=== PATIENT | male | born 1945 | race Caucasian/White ===

== ENCOUNTER 2017-08-31 03:27 | Inpatient (IN) | payer MEDICARE, OTHER ==
[2017-08-31] MEDS: SOD CHLORIDE 0.9% IV (03:51)
[2017-08-31] MEDS: MEROPENEM 500MG/50 ML (PMX) 50 ML IVPB (03:53)
[2017-08-31 04:04] LABS: ADD MAN DIFF? NO
[2017-08-31 04:08] LABS: ABNORMAL IP MESSAGE 1; BASOPHILS % 0.3 % (0.0-2.0); HEMATOCRIT 21.4 % (42.0-52.0); LYMPHOCYTES # 0.6 10^3/ul (0.8-2.9); LYMPHOCYTES % 3.9 % (15.0-51.0); MEAN CORPUSCULAR HEMOGLOBIN 31.9 pg (29.0-33.0); MEAN CORPUSCULAR HGB CONC 31.3 g/dl (32.0-37.0); MEAN CORPUSCULAR VOLUME 101.9 fl (82.0-101.0); MEAN PLATELET VOLUME 13.6 fl (7.4-10.4); MONOCYTE # 1.5 10^3/ul (0.3-0.9); MONOCYTES % 9.9 % (0.0-11.0); PLATELET COUNT 212 10^3/UL (140-415); POSITIVE DIFF @See below; RED CELL DISTRIBUTION WIDTH 18.3 % (11.5-14.5)
[2017-08-31 04:08] LABS: WHITE BLOOD COUNT 15.3 10^3/ul (4.8-10.8)
[2017-08-31 04:20] LABS: HEMOGLOBIN 6.7 g/dl (14.0-18.0)
[2017-08-31 04:24] LABS: ALANINE AMINOTRANSFERASE 99 IU/L (13-69); ALBUMIN 2.1 g/dl (3.3-4.9); ALBUMIN/GLOBULIN RATIO 0.72; ALKALINE PHOSPHATASE 64 IU/L (42-121); ANION GAP 19 (8-16); ASPARTATE AMINO TRANSFERASE 63 IU/L (15-46); BLOOD UREA NITROGEN 36 mg/dl (7-20); CALCIUM 6.2 mg/dl (8.4-10.2); CARBON DIOXIDE 23 mmol/L (21-31); CHLORIDE 118 mmol/L (97-110); CREATININE 1.03 mg/dl (0.61-1.24); GLUCOSE 117 mg/dl (70-220); POTASSIUM 3.7 mmol/L (3.5-5.1); PROTIME 16.4 Sec (11.9-14.9); PT RATIO 1.3; SODIUM 156 mmol/L (135-144)
[2017-08-31 04:25] LABS: PARTIAL THROMBOPLASTIN TIME 33.7 Sec (25.0-35.0)
[2017-08-31 04:44] LABS: TROPONIN-I < 0.012 ng/ml (0.00-0.12)
[2017-08-31] MEDS ORDERED: PROPOFOL 100 ML (04:45)
[2017-08-31 04:46] LABS: LACTIC ACID 2.7 mmol/L (0.5-2.0)
[2017-08-31] MEDS: VANCOMYCIN 1 GM (PMX) 250 ML IVPB (04:58)
[2017-08-31 05:08] LABS: ADD UMIC YES; UR ASCORBIC ACID 40 mg/dL (NEGATIVE); UR BILIRUBIN (Dip) NEGATIVE (NEGATIVE); UR BLOOD (Dip) NEGATIVE (NEGATIVE); UR CLARITY SLIGHTLY CLOUDY (CLEAR); UR COLOR YELLOW (YELLOW); UR GLUCOSE (Dip) NEGATIVE (NEGATIVE); UR KETONES (Dip) NEGATIVE (NEGATIVE); UR LEUKOCYTE ESTERASE (Dip) NEGATIVE Leu/ul (NEGATIVE); UR NITRITE (Dip) NEGATIVE (NEGATIVE); UR RBC 0 /HPF (0-5); UR SPECIFIC GRAVITY (Dip) 1.023 (1.003-1.030); UR TOTAL PROTEIN (Dip) 1+ mg/dl (NEGATIVE); UR UROBILINOGEN (Dip) 1+ mg/dL (NEGATIVE); UR WBC 3 /HPF (0-5)
[2017-08-31 05:09] LABS: URINE BLOOD (Dip) POC Negative (NEGATIVE); URINE GLUCOSE (Dip) POC Negative (NEGATIVE); URINE KETONES (Dip) POC Negative (NEGATIVE); URINE LEUKOCYTE EST (Dip) POC Negative (NEGATIVE); URINE NITRITE (Dip) POC Negative (NEGATIVE); URINE TOTAL PROTEIN POC 1+ (NEGATIVE)
[2017-08-31 05:19] LABS: AADO2 Arterial 442.1 mmHg (7.0-24.0); Allen Test ACCEPTAB; Arterial Base Excess 2.4 mmol/L (-3.0-3); Arterial COHb 0.3 % (0.0-3.0); Arterial Fraction of Oxyhgb 98.3 % (93.0-99.0); Arterial MetHb 0.4 % (0.0-1.5); Arterial Total Hemglobin 9.8 g/dl (12.0-18.0); Arterial pCO2 48.5 mmhg (35-45); Blood Gas Low PEEP Setting 0 cmH2O; MODE VENT - AC; Site Left Radial
[2017-08-31] MEDS: ACETAMINOPHEN 650 MG SUPP PR (05:19)
[2017-08-31] MEDS ORDERED: NORepinephrine 8MG/250 ML (PMX 250 ML (05:25)
[2017-08-31] MEDS ORDERED: MIDAZOLAM IV (05:27)
[2017-08-31] MEDS: LEVALBUTEROL (NEB) 1.25 MG/0.5 ML AMP HHN (05:32)
[2017-08-31] MEDS: IPRATROPIUM (NEB) 0.5 MG/2.5 ML AMP HHN (05:32)
[2017-08-31] MEDS ORDERED: SOD CHLORIDE 0.9% 1,000 ML IV (05:33)
[2017-08-31] MEDS: NORepinephrine 8MG/250 ML (PMX 250 ML IV (06:15)
[2017-08-31 06:38] LABS: LACTIC ACID 1.8 mmol/L (0.5-2.0)
[2017-08-31] MEDS ORDERED: ETOMIDATE 20 MG INJ (07:00)
[2017-08-31] MEDS ORDERED: ROCURONIUM 50 MG INJ (07:00)
[2017-08-31 08:54] LABS: LACTIC ACID 1.9 mmol/L (0.5-2.0)
[2017-08-31 09:57] LABS: IMMEDIATE SPIN CROSSMATCH 1 2
[2017-08-31] MEDS: PANTOPRAZOLE 40 MG INJ IV ×2 (09:58→18:20)
[2017-08-31] MEDS: DEXTROSE 5% 1,000 ML IV ×2 (10:10→20:26)
[2017-08-31 13:26] LABS: LACTIC ACID 3.9 mmol/L (0.5-2.0)
[2017-08-31 14:07] LABS: ABNORMAL IP MESSAGE 1; HEMATOCRIT 27.4 % (42.0-52.0); HEMOGLOBIN 8.7 g/dl (14.0-18.0); MEAN CORPUSCULAR HEMOGLOBIN 31.2 pg (29.0-33.0); MEAN CORPUSCULAR HGB CONC 31.8 g/dl (32.0-37.0); MEAN CORPUSCULAR VOLUME 98.2 fl (82.0-101.0); MEAN PLATELET VOLUME 13.3 fl (7.4-10.4); PLATELET COUNT 220 10^3/UL (140-415); POSITIVE DIFF @See below; RED BLOOD COUNT 2.79 10^6/ul (4.70-6.10); RED CELL DISTRIBUTION WIDTH 18.6 % (11.5-14.5)
[2017-08-31 14:07] LABS: WHITE BLOOD COUNT 24.7 10^3/ul (4.8-10.8)
[2017-08-31 14:10] LABS: ADD MAN DIFF? YES
[2017-08-31 14:45] LABS: ANISOCYTOSIS 1+ (0-0); BAND NEUTROPHILS #M 3.4 10^3/ul (0.0-0.6); BAND NEUTROPHILS % (M) 14 % (0-4); BURR CELLS 1+ (0-0); LYMPHOCYTES #M 0.9 10^3/ul (0.8-2.9); LYMPHOCYTES % (M) 4 % (15-51); MONOCYTE #M 2.4 10^3/ul (0.3-0.9); MONOCYTES % (M) 10 % (0-11); PLATELET ESTIMATE NORMAL; POIKILOCYTOSIS 1+ (0-0); POLYCHROMASIA 1+ (0-0); REACTIVE LYMPHOCYTES #M 0.4 10^3/ul (0.0-0.0); REACTIVE LYMPHOCYTES% (M) 2 % (0-0); SEG NEUT #M 18.1 10^3/ul (1.7-7.5); SEGMENTED NEUTROPHILS (M) % 70 % (39-77); SMUDGE%M 10 % (0-0)
[2017-08-31 15:40] LABS: AADO2 Arterial 283.4 mmHg (7.0-24.0); Allen Test ACCEPTAB; Arterial Base Excess 2.1 mmol/L (-3.0-3); Arterial Blood Gas Oxygen Sat 99.3 mmHG (95.0-100.0); Arterial COHb 0.3 % (0.0-3.0); Arterial Fraction of Oxyhgb 98.6 % (93.0-99.0); Arterial HCO3 25.3 mmol/L (22.0-26.0); Arterial MetHb 0.4 % (0.0-1.5); Arterial Total Hemglobin 9.9 g/dl (12.0-18.0); Arterial pCO2 34.5 mmhg (35-45); MODE VENT - AC; Site Right Radial
[2017-08-31] MEDS ORDERED: VANCOMYCIN IV PER PHARMACY XX (16:30)
[2017-08-31 16:36] LABS: ADD MAN DIFF? NO
[2017-08-31 16:42] LABS: ABNORMAL IP MESSAGE 1; BASOPHILS % 0.2 % (0.0-2.0); EOSINOPHILS % 0.1 % (0.0-7.0); HEMATOCRIT 26.9 % (42.0-52.0); HEMOGLOBIN 8.6 g/dl (14.0-18.0); LYMPHOCYTES # 1.4 10^3/ul (0.8-2.9); LYMPHOCYTES % 6.2 % (15.0-51.0); MEAN CORPUSCULAR HEMOGLOBIN 31.2 pg (29.0-33.0); MEAN CORPUSCULAR VOLUME 97.5 fl (82.0-101.0); MEAN PLATELET VOLUME 12.9 fl (7.4-10.4); MONOCYTE # 2.2 10^3/ul (0.3-0.9); MONOCYTES % 9.5 % (0.0-11.0); NEUTROPHIL # 18.7 10^3/ul (1.6-7.5); NEUTROPHILS % 82.6 % (39.0-77.0); PLATELET COUNT 240 10^3/UL (140-415); POSITIVE DIFF @See below; RED BLOOD COUNT 2.76 10^6/ul (4.70-6.10); RED CELL DISTRIBUTION WIDTH 19.2 % (11.5-14.5)
[2017-08-31 16:42] LABS: WHITE BLOOD COUNT 22.6 10^3/ul (4.8-10.8)
[2017-08-31 16:50] LABS: LACTIC ACID 1.9 mmol/L (0.5-2.0)
[2017-08-31 17:36] LABS: ALANINE AMINOTRANSFERASE 93 IU/L (13-69); ALBUMIN 2.3 g/dl (3.3-4.9); ALBUMIN/GLOBULIN RATIO 0.69; ALKALINE PHOSPHATASE 61 IU/L (42-121); ANION GAP 14 (8-16); ASPARTATE AMINO TRANSFERASE 52 IU/L (15-46); BILIRUBIN,INDIRECT 0.3 mg/dl (0-1.1); BILIRUBIN,TOTAL 0.3 mg/dl (0.2-1.3); BLOOD UREA NITROGEN 41 mg/dl (7-20); CALCIUM 7.1 mg/dl (8.4-10.2); CARBON DIOXIDE 27 mmol/L (21-31); CHLORIDE 111 mmol/L (97-110); CREATININE 1.04 mg/dl (0.61-1.24); GLUCOSE 244 mg/dl (70-220); POTASSIUM 4.2 mmol/L (3.5-5.1); SODIUM 148 mmol/L (135-144); TOTAL PROTEIN 5.6 g/dl (6.1-8.1)
[2017-08-31] MEDS: VANCOMYCIN 750 MG in DEXTROSE 5% 150 ML IVPB (17:59)
[2017-08-31] MEDS: PIPER-TAZO 3.375 GM IV (PMX) 50 ML IVPB ×2 (18:45→23:22)
[2017-08-31 19:41] LABS: LACTIC ACID 0.9 mmol/L (0.5-2.0)
[2017-08-31] MEDS: PROPOFOL 100 ML IV (21:34)
[2017-08-31 21:44] LABS: ADD MAN DIFF? NO
[2017-08-31 21:47] LABS: ABNORMAL IP MESSAGE 1; BASOPHILS % 0.3 % (0.0-2.0); EOSINOPHILS % 0.2 % (0.0-7.0); HEMATOCRIT 23.8 % (42.0-52.0); HEMOGLOBIN 7.1 g/dl (14.0-18.0); LYMPHOCYTES # 1.3 10^3/ul (0.8-2.9); LYMPHOCYTES % 7.9 % (15.0-51.0); MEAN CORPUSCULAR HEMOGLOBIN 30.7 pg (29.0-33.0); MEAN CORPUSCULAR HGB CONC 29.8 g/dl (32.0-37.0); MEAN PLATELET VOLUME 13.1 fl (7.4-10.4); MONOCYTE # 1.5 10^3/ul (0.3-0.9); MONOCYTES % 9.4 % (0.0-11.0); NEUTROPHIL # 12.9 10^3/ul (1.6-7.5); NEUTROPHILS % 81.1 % (39.0-77.0); PLATELET COUNT 170 10^3/UL (140-415); POSITIVE DIFF @See below; RED BLOOD COUNT 2.31 10^6/ul (4.70-6.10)
[2017-08-31 21:47] LABS: WHITE BLOOD COUNT 15.9 10^3/ul (4.8-10.8)
[2017-09-01] MEDS: PANTOPRAZOLE 40 MG INJ IV ×2 (05:47→20:00)
[2017-09-01 06:24] LABS: WHITE BLOOD COUNT 13.6 10^3/ul (4.8-10.8)
[2017-09-01 06:24] LABS: ABNORMAL IP MESSAGE 1; HEMATOCRIT 22.5 % (42.0-52.0); MEAN CORPUSCULAR HEMOGLOBIN 31.8 pg (29.0-33.0); MEAN CORPUSCULAR HGB CONC 30.2 g/dl (32.0-37.0); MEAN CORPUSCULAR VOLUME 105.1 fl (82.0-101.0); MEAN PLATELET VOLUME 13.7 fl (7.4-10.4); PLATELET COUNT 160 10^3/UL (140-415); POSITIVE DIFF @See below; RED BLOOD COUNT 2.14 10^6/ul (4.70-6.10)
[2017-09-01 06:30] LABS: ADD MAN DIFF? YES; HEMOGLOBIN 6.8 g/dl (14.0-18.0)
[2017-09-01 07:06] LABS: IRON 16 ug/dl (35-150)
[2017-09-01 07:08] LABS: ALANINE AMINOTRANSFERASE 68 IU/L (13-69); ALBUMIN 1.8 g/dl (3.3-4.9); ALBUMIN/GLOBULIN RATIO 0.69; ALKALINE PHOSPHATASE 43 IU/L (42-121); ANION GAP 10 (8-16); ASPARTATE AMINO TRANSFERASE 26 IU/L (15-46); BILIRUBIN,INDIRECT 0.2 mg/dl (0-1.1); BILIRUBIN,TOTAL 0.2 mg/dl (0.2-1.3); BLOOD UREA NITROGEN 25 mg/dl (7-20); CARBON DIOXIDE 23 mmol/L (21-31); CHLORIDE 92 mmol/L (97-110); CREATININE 0.75 mg/dl (0.61-1.24); POTASSIUM 3.2 mmol/L (3.5-5.1); SODIUM 122 mmol/L (135-144); TOTAL PROTEIN 4.4 g/dl (6.1-8.1)
[2017-09-01] MEDS: PIPER-TAZO 3.375 GM IV (PMX) 50 ML IVPB ×3 (07:08→18:00)
[2017-09-01 07:16] LABS: % IRON SATURATION 12 % SAT (22-52); TOTAL IRON BINDING CAPACITY 132 ug/dl (241-421)
[2017-09-01 07:17] LABS: GLUCOSE 798 mg/dl (70-220)
[2017-09-01] MEDS: DEXTROSE 5% 1,000 ML IV ×3 (07:30→20:30)
[2017-09-01 07:32] LABS: ANISOCYTOSIS 1+ (0-0); BAND NEUTROPHILS % (M) 15 % (0-4); BURR CELLS 2+ (0-0); LYMPHOCYTES #M 2.7 10^3/ul (0.8-2.9); LYMPHOCYTES % (M) 20 % (15-51); MONOCYTE #M 0.9 10^3/ul (0.3-0.9); MONOCYTES % (M) 7 % (0-11); PLATELET ESTIMATE NORMAL; POIKILOCYTOSIS 2+ (0-0); POLYCHROMASIA 1+ (0-0); SEG NEUT #M 8.2 10^3/ul (1.7-7.5); SEGMENTED NEUTROPHILS (M) % 58 % (39-77); SMUDGE%M 24 % (0-0)
[2017-09-01] MEDS: INSULIN REGULAR, HUMAN 100 UNIT/1 ML 3ML VIAL IV (07:38)
[2017-09-01] MEDS ORDERED: GLUCOSE GEL 15 GRAM TUBE BUCCAL (08:00)
[2017-09-01] MEDS ORDERED: GLUCAGON 1 MG INJ IM (08:00)
[2017-09-01] MEDS ORDERED: DEXTROSE 50% 50 ML SYRINGE IV ×2 (08:00)
[2017-09-01] MEDS ORDERED: GLUCOSE GEL 15 GRAM TUBE PO ×2 (08:00)
[2017-09-01 08:21] LABS: PHOSPHORUS 2.1 mg/dl (2.5-4.9)
[2017-09-01] MEDS: VANCOMYCIN 750 MG in DEXTROSE 5% 150 ML IVPB (08:40)
[2017-09-01 09:29] LABS: GLUCOSE 108 mg/dl (70-220)
[2017-09-01 16:52] LABS: VANCOMYCIN,TROUGH 11.5 ug/ml (10.0-20.0)
[2017-09-01] MEDS: VANCOMYCIN 1 GM 250 ML IVPB (18:53)
[2017-09-02] MEDS: PIPER-TAZO 3.375 GM IV (PMX) 50 ML IVPB ×4 (01:07→18:41)
[2017-09-02] MEDS: PANTOPRAZOLE 40 MG INJ IV ×2 (05:50→18:47)
[2017-09-02 06:08] LABS: ADD MAN DIFF? NO
[2017-09-02 06:21] LABS: BASOPHILS % 0.2 % (0.0-2.0); EOSINOPHILS # 0.2 10^3/ul (0.0-0.5); HEMATOCRIT 26.8 % (42.0-52.0); HEMOGLOBIN 8.7 g/dl (14.0-18.0); LYMPHOCYTES # 1.4 10^3/ul (0.8-2.9); LYMPHOCYTES % 11.9 % (15.0-51.0); MEAN CORPUSCULAR HEMOGLOBIN 31.6 pg (29.0-33.0); MEAN CORPUSCULAR HGB CONC 32.5 g/dl (32.0-37.0); MEAN CORPUSCULAR VOLUME 97.5 fl (82.0-101.0); MEAN PLATELET VOLUME 12.8 fl (7.4-10.4); MONOCYTE # 1.3 10^3/ul (0.3-0.9); NEUTROPHILS % 73.7 % (39.0-77.0); PLATELET COUNT 230 10^3/UL (140-415); RED BLOOD COUNT 2.75 10^6/ul (4.70-6.10); RED CELL DISTRIBUTION WIDTH 17.8 % (11.5-14.5)
[2017-09-02 06:21] LABS: WHITE BLOOD COUNT 12.1 10^3/ul (4.8-10.8)
[2017-09-02] MEDS: VANCOMYCIN 1 GM 250 ML IVPB ×2 (06:23→18:47)
[2017-09-02 06:47] LABS: ANION GAP 12 (8-16); BLOOD UREA NITROGEN 21 mg/dl (7-20); CALCIUM 7.5 mg/dl (8.4-10.2); CARBON DIOXIDE 28 mmol/L (21-31); CHLORIDE 113 mmol/L (97-110); CREATININE 0.97 mg/dl (0.61-1.24); GLUCOSE 112 mg/dl (70-220); MAGNESIUM 2.3 mg/dl (1.7-2.5); PHOSPHORUS 2.8 mg/dl (2.5-4.9); POTASSIUM 4.1 mmol/L (3.5-5.1); SODIUM 149 mmol/L (135-144)
[2017-09-02 07:55] LABS: FOLATE > 20.0 ng/ml (2.8-20.0)
[2017-09-02] MEDS: DEXTROSE 5% 1,000 ML IV ×2 (08:30→18:44)
[2017-09-02] MEDS ORDERED: PROPOFOL 100 ML (10:00)
[2017-09-02] MEDS: RIFAMPIN IVPB (14:17)
[2017-09-02] MEDS: DEXTROSE 5% IVPB (14:17)
[2017-09-02] MEDS: ACYCLOVIR 400 MG TAB PO (21:43)
[2017-09-03] MEDS: PROPOFOL 100 ML IV ×3 (00:11→13:57)
[2017-09-03] MEDS: PIPER-TAZO 3.375 GM IV (PMX) 50 ML IVPB ×4 (00:17→17:20)
[2017-09-03 05:17] LABS: ADD MAN DIFF? NO
[2017-09-03 05:26] LABS: WHITE BLOOD COUNT 8.4 10^3/ul (4.8-10.8)
[2017-09-03 05:26] LABS: BASOPHILS % 0.1 % (0.0-2.0); EOSINOPHILS # 0.3 10^3/ul (0.0-0.5); EOSINOPHILS % 3.1 % (0.0-7.0); HEMATOCRIT 23.4 % (42.0-52.0); HEMOGLOBIN 7.5 g/dl (14.0-18.0); LYMPHOCYTES # 1.4 10^3/ul (0.8-2.9); LYMPHOCYTES % 17.2 % (15.0-51.0); MEAN CORPUSCULAR HEMOGLOBIN 31.5 pg (29.0-33.0); MEAN CORPUSCULAR HGB CONC 32.1 g/dl (32.0-37.0); MEAN CORPUSCULAR VOLUME 98.3 fl (82.0-101.0); MEAN PLATELET VOLUME 12.5 fl (7.4-10.4); MONOCYTE # 1.1 10^3/ul (0.3-0.9); MONOCYTES % 13.2 % (0.0-11.0); NEUTROPHIL # 5.5 10^3/ul (1.6-7.5); NEUTROPHILS % 65.4 % (39.0-77.0); PLATELET COUNT 213 10^3/UL (140-415); RED BLOOD COUNT 2.38 10^6/ul (4.70-6.10); RED CELL DISTRIBUTION WIDTH 17.3 % (11.5-14.5)
[2017-09-03] MEDS: VANCOMYCIN 1 GM 250 ML IVPB ×2 (05:50→17:20)
[2017-09-03] MEDS: PANTOPRAZOLE 40 MG INJ IV ×2 (05:50→17:19)
[2017-09-03 06:37] LABS: ANION GAP 11 (8-16); BLOOD UREA NITROGEN 16 mg/dl (7-20); CALCIUM 6.8 mg/dl (8.4-10.2); CARBON DIOXIDE 24 mmol/L (21-31); CHLORIDE 110 mmol/L (97-110); GLUCOSE 209 mg/dl (70-220); POTASSIUM 3.4 mmol/L (3.5-5.1); SODIUM 142 mmol/L (135-144)
[2017-09-03] MEDS: ACYCLOVIR 400 MG TAB PO ×2 (08:30→21:05)
[2017-09-03] MEDS: DEXTROSE 5% 1,000 ML IV ×2 (08:31→13:53)
[2017-09-03] MEDS: RIFAMPIN IVPB ×2 (11:00→11:15)
[2017-09-03] MEDS: DEXTROSE 5% IVPB ×2 (11:00→11:15)
[2017-09-03] MEDS: POTASSIUM CHLORIDE 50 ML IVPB ×2 (11:15→13:53)
[2017-09-03 17:46] LABS: VANCOMYCIN,TROUGH 15.7 ug/ml (10.0-20.0)
[2017-09-04] MEDS: PIPER-TAZO 3.375 GM IV (PMX) 50 ML IVPB ×4 (00:53→17:52)
[2017-09-04] MEDS: PROPOFOL 100 ML IV ×3 (00:54→19:18)
[2017-09-04] MEDS: DEXTROSE 5% 1,000 ML IV ×3 (02:08→14:00)
[2017-09-04 05:31] LABS: ADD MAN DIFF? NO
[2017-09-04 05:49] LABS: WHITE BLOOD COUNT 9.1 10^3/ul (4.8-10.8)
[2017-09-04 05:49] LABS: BASOPHILS % 0.1 % (0.0-2.0); EOSINOPHILS # 0.3 10^3/ul (0.0-0.5); HEMATOCRIT 25.4 % (42.0-52.0); HEMOGLOBIN 8.4 g/dl (14.0-18.0); LYMPHOCYTES # 1.3 10^3/ul (0.8-2.9); LYMPHOCYTES % 14.8 % (15.0-51.0); MEAN CORPUSCULAR HEMOGLOBIN 31.6 pg (29.0-33.0); MEAN CORPUSCULAR HGB CONC 33.1 g/dl (32.0-37.0); MEAN CORPUSCULAR VOLUME 95.5 fl (82.0-101.0); MEAN PLATELET VOLUME 12.2 fl (7.4-10.4); MONOCYTE # 1.2 10^3/ul (0.3-0.9); NEUTROPHIL # 6.2 10^3/ul (1.6-7.5); NEUTROPHILS % 68.1 % (39.0-77.0); PLATELET COUNT 259 10^3/UL (140-415); RED BLOOD COUNT 2.66 10^6/ul (4.70-6.10); RED CELL DISTRIBUTION WIDTH 16.6 % (11.5-14.5)
[2017-09-04] MEDS: PANTOPRAZOLE 40 MG INJ IV ×2 (05:57→17:53)
[2017-09-04] MEDS: VANCOMYCIN 1 GM 250 ML IVPB ×2 (05:58→17:52)
[2017-09-04 06:09] LABS: ANION GAP 13 (8-16); BLOOD UREA NITROGEN 13 mg/dl (7-20); CALCIUM 7.2 mg/dl (8.4-10.2); CARBON DIOXIDE 24 mmol/L (21-31); CHLORIDE 109 mmol/L (97-110); CREATININE 0.78 mg/dl (0.61-1.24); GLUCOSE 110 mg/dl (70-220); POTASSIUM 3.9 mmol/L (3.5-5.1); SODIUM 142 mmol/L (135-144)
[2017-09-04] MEDS: ACYCLOVIR 400 MG TAB PO ×2 (08:59→21:23)
[2017-09-04] MEDS: COLLAGENASE 30 GM TUBE TOP (09:00)
[2017-09-04] MEDS: ENOXAPARIN 30 MG/0.3 ML SYG SC (09:03)
[2017-09-05] MEDS: PIPER-TAZO 3.375 GM IV (PMX) 50 ML IVPB ×4 (02:11→17:00)
[2017-09-05] MEDS: PROPOFOL 100 ML IV ×3 (02:12→17:00)
[2017-09-05 05:52] LABS: ADD MAN DIFF? NO
[2017-09-05 05:56] LABS: BASOPHILS % 0.1 % (0.0-2.0); EOSINOPHILS # 0.3 10^3/ul (0.0-0.5); EOSINOPHILS % 3.4 % (0.0-7.0); HEMATOCRIT 26.3 % (42.0-52.0); HEMOGLOBIN 8.5 g/dl (14.0-18.0); LYMPHOCYTES # 1.3 10^3/ul (0.8-2.9); LYMPHOCYTES % 15.9 % (15.0-51.0); MEAN CORPUSCULAR HEMOGLOBIN 31.1 pg (29.0-33.0); MEAN CORPUSCULAR HGB CONC 32.3 g/dl (32.0-37.0); MEAN CORPUSCULAR VOLUME 96.3 fl (82.0-101.0); MEAN PLATELET VOLUME 12.2 fl (7.4-10.4); MONOCYTE # 1.1 10^3/ul (0.3-0.9); MONOCYTES % 13.2 % (0.0-11.0); NEUTROPHIL # 5.6 10^3/ul (1.6-7.5); NEUTROPHILS % 66.8 % (39.0-77.0); PLATELET COUNT 273 10^3/UL (140-415); RED BLOOD COUNT 2.73 10^6/ul (4.70-6.10); RED CELL DISTRIBUTION WIDTH 16.1 % (11.5-14.5)
[2017-09-05 05:56] LABS: WHITE BLOOD COUNT 8.3 10^3/ul (4.8-10.8)
[2017-09-05] MEDS: PANTOPRAZOLE 40 MG INJ IV ×2 (06:00→17:01)
[2017-09-05] MEDS: VANCOMYCIN 1 GM 250 ML IVPB ×2 (06:00→17:01)
[2017-09-05] MEDS: DEXTROSE 5% 1,000 ML IV (06:01)
[2017-09-05 06:25] LABS: ANION GAP 14 (8-16); BLOOD UREA NITROGEN 10 mg/dl (7-20); CALCIUM 7.2 mg/dl (8.4-10.2); CARBON DIOXIDE 24 mmol/L (21-31); CHLORIDE 107 mmol/L (97-110); CREATININE 0.77 mg/dl (0.61-1.24); GLUCOSE 130 mg/dl (70-220); POTASSIUM 3.7 mmol/L (3.5-5.1); SODIUM 141 mmol/L (135-144)
[2017-09-05] MEDS: DEXTROSE 5% IVPB (08:45)
[2017-09-05] MEDS: COLLAGENASE 30 GM TUBE TOP (08:45)
[2017-09-05] MEDS: RIFAMPIN IVPB (08:45)
[2017-09-05] MEDS: ACYCLOVIR 400 MG TAB PO ×2 (08:45→21:13)
[2017-09-05] MEDS: ENOXAPARIN 30 MG/0.3 ML SYG SC (08:49)
[2017-09-06] MEDS: PROPOFOL 100 ML IV ×4 (01:00→16:46)
[2017-09-06] MEDS: PIPER-TAZO 3.375 GM IV (PMX) 50 ML IVPB ×3 (05:44→11:53)
[2017-09-06] MEDS: PANTOPRAZOLE 40 MG INJ IV ×2 (05:45→17:14)
[2017-09-06 06:39] LABS: VANCOMYCIN,TROUGH 19.2 ug/ml (10.0-20.0)
[2017-09-06 07:02] LABS: ANION GAP 13 (8-16); BLOOD UREA NITROGEN 12 mg/dl (7-20); CALCIUM 7.4 mg/dl (8.4-10.2); CARBON DIOXIDE 25 mmol/L (21-31); CHLORIDE 110 mmol/L (97-110); CREATININE 0.81 mg/dl (0.61-1.24); GLUCOSE 116 mg/dl (70-220); SODIUM 144 mmol/L (135-144)
[2017-09-06] MEDS: VANCOMYCIN 1 GM 250 ML IVPB (07:32)
[2017-09-06] MEDS ORDERED: ACYCLOVIR 400 MG TAB (07:45)
[2017-09-06] MEDS ORDERED: ENOXAPARIN 30 MG/0.3 ML SYG SC (07:46)
[2017-09-06] MEDS: COLLAGENASE 30 GM TUBE TOP (08:05)
[2017-09-06] MEDS: ACYCLOVIR 400 MG TAB PO ×2 (08:05→20:00)
[2017-09-06] MEDS: ENOXAPARIN 30 MG/0.3 ML SYG SC (08:08)
[2017-09-06] MEDS: RIFAMPIN IVPB (09:45)
[2017-09-06] MEDS: DEXTROSE 5% IVPB (09:45)
[2017-09-06] MEDS: DEXTROSE 5% 1,000 ML IV (11:10)
[2017-09-06] MEDS ORDERED: CEFEPIME 1GM/50 ML (PMX) 50 ML (19:53)
[2017-09-06] MEDS: CEFEPIME 1GM/50 ML (PMX) 50 ML IVPB (20:00)
[2017-09-07] MEDS: DEXTROSE 5% 1,000 ML IV ×2 (00:18→12:44)
[2017-09-07 05:39] LABS: ADD MAN DIFF? NO
[2017-09-07] MEDS: PANTOPRAZOLE 40 MG INJ IV ×2 (05:49→17:51)
[2017-09-07 05:50] LABS: WHITE BLOOD COUNT 9.3 10^3/ul (4.8-10.8)
[2017-09-07 05:50] LABS: BASOPHILS % 0.2 % (0.0-2.0); EOSINOPHILS # 0.3 10^3/ul (0.0-0.5); EOSINOPHILS % 2.8 % (0.0-7.0); HEMATOCRIT 25.3 % (42.0-52.0); HEMOGLOBIN 8.4 g/dl (14.0-18.0); LYMPHOCYTES # 1.4 10^3/ul (0.8-2.9); LYMPHOCYTES % 14.7 % (15.0-51.0); MEAN CORPUSCULAR HEMOGLOBIN 31.7 pg (29.0-33.0); MEAN CORPUSCULAR HGB CONC 33.2 g/dl (32.0-37.0); MEAN CORPUSCULAR VOLUME 95.5 fl (82.0-101.0); MEAN PLATELET VOLUME 12.2 fl (7.4-10.4); MONOCYTE # 1.2 10^3/ul (0.3-0.9); MONOCYTES % 12.5 % (0.0-11.0); NEUTROPHIL # 6.4 10^3/ul (1.6-7.5); NEUTROPHILS % 69.2 % (39.0-77.0); PLATELET COUNT 286 10^3/UL (140-415); RED BLOOD COUNT 2.65 10^6/ul (4.70-6.10); RED CELL DISTRIBUTION WIDTH 16.2 % (11.5-14.5)
[2017-09-07 06:06] LABS: ANION GAP 11 (8-16); BLOOD UREA NITROGEN 11 mg/dl (7-20); CALCIUM 7.5 mg/dl (8.4-10.2); CARBON DIOXIDE 26 mmol/L (21-31); CHLORIDE 106 mmol/L (97-110); CREATININE 0.64 mg/dl (0.61-1.24); GLUCOSE 128 mg/dl (70-220); POTASSIUM 3.9 mmol/L (3.5-5.1); SODIUM 139 mmol/L (135-144)
[2017-09-07] MEDS: CEFEPIME 1GM/50 ML (PMX) 50 ML IVPB ×2 (08:22→20:57)
[2017-09-07] MEDS: ACYCLOVIR 400 MG TAB PO ×2 (08:23→20:57)
[2017-09-07] MEDS: DEXTROSE 5% IVPB (08:23)
[2017-09-07] MEDS: RIFAMPIN IVPB (08:23)
[2017-09-07] MEDS: COLLAGENASE 30 GM TUBE TOP (08:24)
[2017-09-07] MEDS: PROPOFOL 100 ML IV (08:24)
[2017-09-07] MEDS: ENOXAPARIN 30 MG/0.3 ML SYG SC (08:26)
[2017-09-07 10:34] LABS: AADO2 Arterial 88.1 mmHg (7.0-24.0); Allen Test ACCEPTAB; Arterial Base Excess 0.8 mmol/L (-3.0-3); Arterial Blood Gas Oxygen Sat 96.5 mmHG (95.0-100.0); Arterial COHb 0.3 % (0.0-3.0); Arterial Fraction of Oxyhgb 95.9 % (93.0-99.0); Arterial HCO3 23.9 mmol/L (22.0-26.0); Arterial MetHb 0.3 % (0.0-1.5); Arterial Total Hemglobin 9.7 g/dl (12.0-18.0); Arterial pCO2 32.1 mmhg (35-45); MODE VENT - AC; Site Right Radial
[2017-09-07] MEDS: VANCOMYCIN 1.5 GM in DEXTROSE 5% 500 ML IVPB (12:44)
[2017-09-07 13:18] LABS: AADO2 Arterial 80.5 mmHg (7.0-24.0); Allen Test ACCEPTAB; Arterial Base Excess 1.6 mmol/L (-3.0-3); Arterial Blood Gas Oxygen Sat 97.1 mmHG (95.0-100.0); Arterial COHb 0.2 % (0.0-3.0); Arterial Fraction of Oxyhgb 96.7 % (93.0-99.0); Arterial HCO3 24.5 mmol/L (22.0-26.0); Arterial MetHb 0.2 % (0.0-1.5); Arterial Total Hemglobin 9.5 g/dl (12.0-18.0); Arterial pCO2 32.1 mmhg (35-45); Blood Gas PS 10; MODE VENT - CPAP; Site Right Radial
[2017-09-07] MEDS ORDERED: PANTOPRAZOLE 40 MG INJ (15:46)
[2017-09-08] MEDS: DEXTROSE 5% 1,000 ML IV ×2 (00:59→13:47)
[2017-09-08] MEDS: PROPOFOL 100 ML IV ×3 (00:59→18:45)
[2017-09-08] MEDS: PANTOPRAZOLE 40 MG INJ IV ×2 (05:33→17:04)
[2017-09-08 05:46] LABS: ADD MAN DIFF? NO
[2017-09-08 05:59] LABS: BASOPHILS % 0.2 % (0.0-2.0); EOSINOPHILS # 0.3 10^3/ul (0.0-0.5); EOSINOPHILS % 3.7 % (0.0-7.0); HEMATOCRIT 25.6 % (42.0-52.0); HEMOGLOBIN 8.3 g/dl (14.0-18.0); LYMPHOCYTES # 0.7 10^3/ul (0.8-2.9); MEAN CORPUSCULAR HEMOGLOBIN 31.1 pg (29.0-33.0); MEAN CORPUSCULAR HGB CONC 32.4 g/dl (32.0-37.0); MEAN CORPUSCULAR VOLUME 95.9 fl (82.0-101.0); MEAN PLATELET VOLUME 12.3 fl (7.4-10.4); MONOCYTE # 1.2 10^3/ul (0.3-0.9); MONOCYTES % 14.5 % (0.0-11.0); NEUTROPHIL # 5.9 10^3/ul (1.6-7.5); PLATELET COUNT 282 10^3/UL (140-415); RED BLOOD COUNT 2.67 10^6/ul (4.70-6.10); RED CELL DISTRIBUTION WIDTH 16.2 % (11.5-14.5)
[2017-09-08 05:59] LABS: WHITE BLOOD COUNT 8.2 10^3/ul (4.8-10.8)
[2017-09-08 06:39] LABS: ANION GAP 8 (8-16); BLOOD UREA NITROGEN 8 mg/dl (7-20); CALCIUM 7.9 mg/dl (8.4-10.2); CARBON DIOXIDE 28 mmol/L (21-31); CHLORIDE 104 mmol/L (97-110); CREATININE 0.76 mg/dl (0.61-1.24); GLUCOSE 104 mg/dl (70-220); MAGNESIUM 1.9 mg/dl (1.7-2.5); PHOSPHORUS 2.7 mg/dl (2.5-4.9); POTASSIUM 3.9 mmol/L (3.5-5.1); SODIUM 136 mmol/L (135-144)
[2017-09-08] MEDS: CEFEPIME 1GM/50 ML (PMX) 50 ML IVPB ×2 (09:28→20:34)
[2017-09-08] MEDS: RIFAMPIN IVPB (09:29)
[2017-09-08] MEDS: DEXTROSE 5% IVPB (09:29)
[2017-09-08] MEDS: ACYCLOVIR 400 MG TAB PO ×2 (09:29→20:34)
[2017-09-08] MEDS: ENOXAPARIN 30 MG/0.3 ML SYG SC (09:31)
[2017-09-08] MEDS: VANCOMYCIN 1.5 GM in DEXTROSE 5% 500 ML IVPB (10:14)
[2017-09-08] MEDS: COLLAGENASE 30 GM TUBE TOP (17:04)
[2017-09-09] MEDS: PROPOFOL 100 ML IV (03:53)
[2017-09-09] MEDS: DEXTROSE 5% 1,000 ML IV (03:53)
[2017-09-09] MEDS: PANTOPRAZOLE 40 MG INJ IV (05:27)
[2017-09-09] MEDS: CEFEPIME 1GM/50 ML (PMX) 50 ML IVPB (09:33)
[2017-09-09] MEDS: DEXTROSE 5% IVPB (09:33)
[2017-09-09] MEDS: ACYCLOVIR 400 MG TAB PO (09:33)
[2017-09-09] MEDS: RIFAMPIN IVPB (09:33)
[2017-09-09] MEDS: COLLAGENASE 30 GM TUBE TOP (09:35)
[2017-09-09] MEDS: ENOXAPARIN 30 MG/0.3 ML SYG SC (09:35)
[2017-09-09] MEDS: VANCOMYCIN 1.5 GM in DEXTROSE 5% 500 ML IVPB (10:00)
[2017-09-09] MEDS ORDERED: DIMETHICONE STICK TOP (12:00)
[2017-09-09] MEDS ORDERED: morphine (DRIP) 100 MG/100 ML 100 ML IV (12:00)
[2017-09-09] MEDS ORDERED: ATROPINE 1% 5 ML OPH SL (12:00)
[2017-09-09] MEDS: SCOPOLAMINE 1.5 MG PATCH TRANSDERM (12:00)
[2017-09-09] MEDS ORDERED: ARTIFICIAL TEARS 15 ML OPH BOTH EYES (12:00)
[2017-09-09] MEDS ORDERED: ACETAMINOPHEN 325 MG TAB PO (12:00)
[2017-09-09] MEDS ORDERED: ONDANSETRON 4 MG INJ IV (12:00)
[2017-09-09] MEDS: LORAZEPAM 2 MG INJ IV (13:12)
[2017-09-09] MEDS: morphine 2 MG INJ IV (13:12)
[2017-09-09] MEDS: morphine (DRIP) 100 MG/100 ML 100 ML IV (13:14)
[2017-09-10] MEDS: morphine (DRIP) 100 MG/100 ML 100 ML IV (00:28)
== END 2017-09-10 08:45 | disposition expired | DRG 870 ==
LOC: ICU 05:40 → E/R 03:27 → MS1 09-09 20:21
PROC: 5A1955Z Respiratory Ventilation, Greater than 96 Consecutive Hours (ICD-10-PCS; principal; 2017-08-31)
PROC: 0BH17EZ Insertion of Endotracheal Airway into Trachea, Via Natural or Artificial Opening (ICD-10-PCS; 2017-08-31)
PROC: 30283B1 Transfusion of Nonautologous 4-Factor Prothrombin Complex Concentrate into Vein, Percutaneous Approach (ICD-10-PCS; 2017-08-31)
DX: A41.02 Sepsis due to Methicillin resistant Staphylococcus aureus (principal); J69.0 Pneumonitis due to inhalation of food and vomit; J96.01 Acute respiratory failure with hypoxia; R65.21 Severe sepsis with septic shock; J18.9 Pneumonia, unspecified organism; G93.40 Encephalopathy, unspecified; L89.150 Pressure ulcer of sacral region, unstageable; E87.0 Hyperosmolality and hypernatremia; G30.9 Alzheimer's disease, unspecified; F02.80 Dementia in other diseases classified elsewhere, unspecified severity, without behavioral disturbance, psychotic disturbance, mood disturbance, and anxiety; R13.10 Dysphagia, unspecified; I48.0 Paroxysmal atrial fibrillation; D53.9 Nutritional anemia, unspecified; Z74.01 Bed confinement status; N40.0 Benign prostatic hyperplasia without lower urinary tract symptoms; Z93.1 Gastrostomy status; Z87.891 Personal history of nicotine dependence; Z66 Do not resuscitate; Z51.5 Encounter for palliative care
CPT/HCPCS: 31500; 36415; 36430; 36600; 71045; 80048; 80053; 80202; 81001; 81003; 82607; 82746; 82803; 82947; 82962; 83540; 83605; 83735; 84100; 84484; 85025; 85610; 85730; 86850; 86900; 86901; 86920; 87040; 87045; 87081; 87086; 87400; 93005; 94002; 94003; 94664; 94770; 96365; 96366; 96367; 96375; 96376; 99291-25